=== PATIENT | male | born 1970 ===

== ENCOUNTER 2021-04-29 05:35 | Outpatient (CLI) | payer MEDICARE ==
[~2021-04-29] VITALS: Ht 175 cm; Wt 144.0 kg
[2021-04-29] MEDS ORDERED: CARB400T8 PO (10:33)
[2021-04-29] MEDS ORDERED: LAMO100T5 PO (10:33)
[2021-04-29] MEDS ORDERED: AMLO-251 PO (10:33)
== END 2021-04-29 11:24 | disposition home or self-care (01) ==
LOC: PREOP 05:35
PROVIDERS: ATTEND Surgery
DX: Z01.818 Encounter for other preprocedural examination (principal)

== ENCOUNTER 2022-05-12 18:12 | Observation (INO) | payer MEDICARE ==
[~2022-05-12] VITALS: Ht 175.3 cm; Wt 143.2 kg
[~2022-05-12 18:12] MED LIST: AMLO-251 PO; CARB400T8 PO; LAMO100T5 PO
--- NOTE | 2022-05-12 18:51 | ED Abdominal Pain ---
General Chief Complaint: Abdominal/GI Problems Stated Complaint: N/V/D Nursing Triage Note: PT TO [facility] WITH C/O N/V/D SINCE NOON WHEN HE WOKE UP TODAY. PT ALSO STATES THAT HE IS DIZZY WHEN HE TIRES TO STAND History of Present Illness Date Seen by Provider: May 12, 2022 Time Seen by Provider: 18:45 Initial Comments Patient is a 51-year-old male, who appears much older than stated age, history of diabetes, high blood pressure, seizure disorder who presents to the emergency department today with a chief complaint of feeling very dizzy and having nausea and vomiting today. He states it was a rather acute onset this afternoon when he felt a sudden onset of dizziness while watching TV. He tried to lay down and sleep a little bit which seemed to improve his symptoms but once he got up and moved around the dizziness came back. He states it feels like the room is moving around him. He has never had anything like this before. He denies headache, speech difficulties or swallowing difficulties. He denies unilateral numbness, weakness or tingling. No chest pain or shortness of breath. No abdominal pain. He states he vomited about 3 times related to the dizziness. He has developed diarrhea over the course of the last several days, he recently started metformin 2 months ago. He denies burning with urination, blood in his urine or stool. No swelling in his legs that is unusual. He is COVID vaccinated x2 without a booster. He does occasionally go to [facility]. Again he is not short of breath or coughing and does not have any URI symptoms. He has seizures occasionally and is on 2 different medications for seizure prevention. He states he is compliant with his medications. All other review of systems reviewed and negative except as stated. Timing/Duration: 4-6 Hours Severity/Quality: Moderate Associated Symptoms: Nausea/Vomiting, Other (dizziness) Allergies and Home Medications Allergies Coded Allergies: No Known Drug Allergies (Unverified , 05/12/22) Patient Home Medication List Home Medication List Reviewed: Yes Amlodipine Besylate (Amlodipine Besylate) 10 Mg Tablet, 10 MG PO DAILY, (Reported) Entered as Reported by: LEONID VILLELA on 04/29/21 1033 Carbamazepine (Carbamazepine ER) 400 Mg Tab.er.12h, 400 MG PO Q12HR, (Reported) Entered as Reported by: LEONID VILLELA on 04/29/21 1033 Lamotrigine (Lamotrigine) 100 Mg Tablet, 100 MG PO UD, (Reported) Entered as Reported by: LEONID VILLELA on 04/29/21 1033 Review of Systems Review of Systems Constitutional: see HPI EENTM: No Symptoms Reported Respiratory: No Symptoms Reported Cardiovascular: No Symptoms Reported Gastrointestinal: Diarrhea, Nausea, Vomiting Genitourinary: No Symptoms Reported Musculoskeletal: no symptoms reported Skin: no symptoms reported Psychiatric/Neurological: Other (dizziness) All Other Systems Reviewed Negative Unless Noted: Yes Past Jpgzyrb-Aluaxv-Xhbzhd Hx Patient Social History Tobacco Use?: No Use of E-Cig and/or Vaping dev: No Substance use?: No Alcohol Use?: No Pt feels they are or have been: No Immunizations Up To Date Influenza Vaccine Up-to-Date: Yes; Up-to-Date First/Initial COVID19 Vaccinat: MARCH 2021 Second COVID19 Vaccination Shahzad: APRIL 2021 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 oz. 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, no motor/sensory deficits, alert, normal mood/affect, oriented x 3, other (He has significant rotatory nystagmus in all extraocular muscle field) Skin: normal color, warm/dry Progress/Results/Core Measures Results/Orders Lab Results Laboratory Tests Test 05/12/22 18:16 Range/Units White Blood Count 21.7 H 4.3-11.0 10^3/uL Red Blood Count 5.04 4.30-5.52 10^6/uL Hemoglobin 15.6 13.3-17.7 g/dL Hematocrit 47 40-54 % Mean Corpuscular Volume 93 80-99 fL Mean Corpuscular Hemoglobin 31 25-34 pg Mean Corpuscular Hemoglobin Concent 33 32-36 g/dL Red Cell Distribution Width 12.7 10.0-14.5 % Platelet Count 361 130-400 10^3/uL Mean Platelet Volume 9.2 9.0-12.2 fL Immature Granulocyte % (Auto) 1 % Neutrophils (%) (Auto) 86 H 42-75 % Lymphocytes (%) (Auto) 7 L 12-44 % Monocytes (%) (Auto) 5 0-12 % Eosinophils (%) (Auto) 0 0-10 % Basophils (%) (Auto) 0 0-10 % Neutrophils # (Auto) 18.8 H 1.8-7.8 10^3/uL Lymphocytes # (Auto) 1.6 1.0-4.0 10^3/uL Monocytes # (Auto) 1.1 H 0.0-1.0 10^3/uL Eosinophils # (Auto) 0.0 0.0-0.3 10^3/uL Basophils # (Auto) 0.0 0.0-0.1 10^3/uL Immature Granulocyte # (Auto) 0.2 H 0.0-0.1 10^3/uL Neutrophils % (Manual) 87 % Lymphocytes % (Manual) 1 % Monocytes % (Manual) 12 % Blood Morphology Comment NORMAL Sodium Level 141 135-145 MMOL/L Potassium Level 3.5 L 3.6-5.0 MMOL/L Chloride Level 104 98-107 MMOL/L Carbon Dioxide Level 16 L 21-32 MMOL/L Anion Gap 21 H 5-14 MMOL/L Blood Urea Nitrogen 12 7-18 MG/DL Creatinine 1.13 0.60-1.30 MG/DL Estimat Glomerular Filtration Rate 79 BUN/Creatinine Ratio 11 Glucose Level 161 H 70-105 MG/DL Calcium Level 9.4 8.5-10.1 MG/DL Corrected Calcium 9.2 8.5-10.1 MG/DL Total Bilirubin 0.2 0.1-1.0 MG/DL Aspartate Amino Transf (AST/SGOT) 25 5-34 U/L Alanine Aminotransferase (ALT/SGPT) 38 0-55 U/L Alkaline Phosphatase 149 H 40-136 U/L C-Reactive Protein High Sensitivity 2.95 H 0.00-0.50 MG/DL Total Protein 7.7 6.4-8.2 GM/DL Albumin 4.3 3.2-4.5 GM/DL My Orders Orders - LATRELL GONZALEZ MD Ed Iv/Invasive Line Start (05/12/22 19:03) Cbc With Automated Diff (05/12/22 19:03) Comprehensive Metabolic Panel (05/12/22 19:03) Ekg Tracing (05/12/22 19:03) Meclizine Tablet (Antivert Tablet) (05/12/22 19:15) Ondansetron Injection (Zofran Injectio (05/12/22 19:15) Lactated Ringers (Lr 1000 Ml Iv Solution (05/12/22 19:15) Manual Differential (05/12/22 18:16) Ct Head Wo (05/12/22 20:17) Diazepam Injection (Valium Injection) (05/12/22 21:34) Lactated Ringers (Lr 1000 Ml Iv Solution (05/12/22 21:45) Hs C Reactive Protein (05/12/22 21:44) Blood Culture (05/12/22 22:53) Procalcitonin (Pct) (05/12/22 22:53) Ua Culture If Indicated (05/12/22 22:53) Chest 1 View, Ap/Pa Only (05/12/22 22:53) Covid 19 Inhouse Test (05/12/22 22:53) Lactic Acid Analyzer (05/12/22 22:53) Isolation Central Supply Req (05/12/22 22:53) Blood Culture (05/12/22 22:53) Medications Given in ED Current Medications Medications Dose Ordered Sig/Brandon Route Start Time Stop Time Status Last Admin Dose Admin Meclizine HCl 25 mg ONCE ONCE PO 05/12/22 19:15 05/12/22 19:16 DC 05/12/22 19:19 25 MG Ondansetron HCl 4 mg ONCE ONCE IVP 05/12/22 19:15 05/12/22 19:16 DC 05/12/22 19:19 4 MG Vital Signs/I&O 05/12/22 18:23 Temp 35.8 Pulse 94 Resp 18 B/P (MAP) 149/87 (107) Blood Pressure Mean: 107 Initial ECG Impression Date: May 12, 2022 Initial ECG Impression Time: 19:09 Initial ECG Rate: 95 Initial ECG Rhythm: S.Tach Initial ECG Intervals IN interval 175 QRS 107 QTC [address] segment depression or elevation is noted, no ectopy. Q waves in lead III. Normal intervals Departure Communication (Admissions) Time/Spoke to Admitting Phy: 22:[address] Wilkins - will admit observation Impression Primary Impression: Vertigo, constant Disposition: 09 ADMITTED INPATIENT Condition: Stable Admissions Decision to Admit Reason: Admit from ER (General) Decision to Admit/Date: May 12, 2022 Time/Decision to Admit Time: 22:27 LATRELL GONZALEZ MD May 12, 2022 18:51
[2022-05-12 19:12] LABS: BASOPHILS % (AUTO) 0 % (0-10); EOSINOPHILS % (AUTO) 0 % (0-10); HEMATOCRIT 47 % (40-54); HEMOGLOBIN 15.6 g/dL (13.3-17.7); LYMPHOCYTES # (AUTO) 1.6 10^3/uL (1.0-4.0); LYMPHOCYTES % (AUTO) 7 % (12-44); MEAN CORPUSCULAR HEMOGLOBIN 31 pg (25-34); MEAN CORPUSCULAR HGB CONC 33 g/dL (32-36); MEAN CORPUSCULAR VOLUME 93 fL (80-99); MEAN PLATELET VOLUME 9.2 fL (9.0-12.2); MONOCYTES # (AUTO) 1.1 10^3/uL (0.0-1.0); MONOCYTES % (AUTO) 5 % (0-12); NEUTROPHILS # (AUTO) 18.8 10^3/uL (1.8-7.8); NEUTROPHILS % (AUTO) 86 % (42-75); PLATELET COUNT 361 10^3/uL (130-400); WHITE BLOOD COUNT 21.7 10^3/uL (4.3-11.0)
[2022-05-12] MEDS ORDERED: LACTATED RINGERS 1,000 ML IV SCH ×2 (19:15→21:45)
[2022-05-12] MEDS ORDERED: MECLIZINE 25 MG (ANTIVERT) TAB PO ONE (19:15)
[2022-05-12] MEDS ORDERED: ONDANSETRON 4 MG/2 ML (SDV) Z0FRAN IVP ONE (19:15)
[2022-05-12 19:24] LABS: ALBUMIN 4.3 GM/DL (3.2-4.5); BILIRUBIN,TOTAL 0.2 MG/DL (0.1-1.0); CALCIUM 9.4 MG/DL (8.5-10.1); CREATININE SERUM 1.13 MG/DL (0.60-1.30); POTASSIUM 3.5 MMOL/L (3.6-5.0); TOTAL PROTEIN 7.7 GM/DL (6.4-8.2)
[2022-05-12 19:27] LABS: LYMPHOCYTES % (MANUAL) 1 %; MONOCYTES % (MANUAL) 12 %; NEUTROPHILS % (MANUAL) 87 %; RBC MORPH NORMAL
--- NOTE | 2022-05-12 21:25 | Diagnostic Imaging Report ---
INDICATION: Dizziness and ataxia. TECHNIQUE: Multiple contiguous axial images were obtained through the brain without the use of intravenous contrast. Auto Exposure Controls were utilized during the CT exam to meet ALARA standards for radiation dose reduction. COMPARISON: There is no prior study for comparison. There were no extra-axial fluid collections. No intracranial hemorrhage. No intracranial mass or mass effect. No midline shift. The ventricles are normal in size and position. There were no overt acute parenchymal abnormalities in the brain. Calvarial windows showed no acute finding. Orbital contents appear unremarkable. IMPRESSION: No acute intracranial abnormality. Dictated by: Dictated on workstation # [id number]
[2022-05-12] MEDS ORDERED: DIAZEPAM INJ 10 MG/2 ML (VALIUM) SYR IVP STA (21:34)
[2022-05-12] MEDS ORDERED: diphenhydrAMINE 25 MG TAB (BENADRYL) PO PRN (23:45)
[2022-05-12] MEDS ORDERED: ONDANSETRON 4 MG/2 ML (SDV) Z0FRAN IV PRN (23:45)
[2022-05-13] VITALS (7 sets, daily range): BP systolic 129–148; BP diastolic 75–85
[2022-05-13] MEDS: MECLIZINE 25 MG (ANTIVERT) TAB PO SCH ×5 (00:40→23:05)
[2022-05-13] MEDS: carBAMazepine 200 MG (TEGretol) TAB PO SCH ×3 (00:40→20:07)
[2022-05-13] MEDS: NS IV 1000 ML 1,000 ML IV SCH ×3 (00:41→15:41)
[2022-05-13 00:59] LABS: BILIRUBIN,URINE NEGATIVE (NEGATIVE); CLARITY,URINE CLEAR; COLOR,URINE YELLOW; GLUCOSE, URINE (UA) NEGATIVE (NEGATIVE); KETONES,URINE TRACE (NEGATIVE); LEUKOCYTE ESTERASE ,URINE NEGATIVE (NEGATIVE); NITRITE,URINE NEGATIVE (NEGATIVE); PH,URINE 5.5 (5-9); PROTEIN,URINE NEGATIVE (NEGATIVE)
[2022-05-13 01:09] LABS: RBC,URINE 0-2 /HPF
[2022-05-13 01:10] LABS: BACTERIA,URINE NEGATIVE /HPF
[2022-05-13] MEDS: cefTRIAXone 2,000 MG in NS (IVPB) 50 ML IV SCH ×2 (01:33→11:35)
[2022-05-13] MEDS ORDERED: VANCOMYCIN INJECTION 1,000 MG in NS (IVPB) 250 ML IV SCH (02:00)
[2022-05-13] MEDS: AMPICILLIN FOR IV USE 2,000 MG in WATER (STERILE) FOR INJECTION 14.8 ML IV SCH ×6 (05:08→23:06)
[2022-05-13 05:51] LABS: BASOPHILS % (AUTO) 0 % (0-10); EOSINOPHILS % (AUTO) 0 % (0-10); HEMATOCRIT 42 % (40-54); LYMPHOCYTES # (AUTO) 1.5 10^3/uL (1.0-4.0); LYMPHOCYTES % (AUTO) 11 % (12-44); MEAN CORPUSCULAR HEMOGLOBIN 31 pg (25-34); MEAN CORPUSCULAR HGB CONC 33 g/dL (32-36); MEAN CORPUSCULAR VOLUME 94 fL (80-99); MEAN PLATELET VOLUME 8.9 fL (9.0-12.2); MONOCYTES # (AUTO) 0.9 10^3/uL (0.0-1.0); MONOCYTES % (AUTO) 6 % (0-12); NEUTROPHILS % (AUTO) 82 % (42-75); PLATELET COUNT 297 10^3/uL (130-400); WHITE BLOOD COUNT 13.5 10^3/uL (4.3-11.0)
--- NOTE | 2022-05-13 06:03 | History & Physical-Hospitalist ---
History of Present Illness HPI/Chief Complaint CC: Severe dizziness HPI: This is a 51 yr old WM with a history of seizure disorder and hypertension. He presented to the ER with severe dizziness for the past couple days and couldn't walk. He was admitted after his white count was found to be 21,000 without source. But Covid swab was negative. There was a concern due to elevated lactic acid. Initiated IV fluid with meningitis. Anesthesia was able to perform the lumbar puncture satisfactory, after the ER doctor was unable to do the test due to BMI of 46. They didn't have a long enough needle. That was sent off. He was placed on three antibiotic regimen, even though LP hadn't been done yet. Will follow up on those results. Currently he is asymptomatic. Source: patient Exam Limitations: no limitations Date Seen 05/13/22 Time Seen by a Provider: 09:30 Attending Physician PCP Admitting Physician: Paula Wilkins DO Attending Physician: Paula Wilkins DO Referring Physician Date of Admission May 12, 2022 at 22:58 Home Medications & Allergies Home Medications Reviewed patient Home Medication Reconciliation performed by pharmacy medication reconciliations geodetic technician and/or nursing. Patients Allergies have been reviewed. Allergies Allergies Coded Allergies No Known Drug Allergies (Unverified05/12/22) Past Kwfudnf-Hrkjer-Txkvxn Hx Patient Social History Marrital Status: single Employed/Student: unemployed Tobacco Use?: No Smoking Status: Never a Smoker Smokeless Tobacco Frequency: Never a User Use of E-Cig and/or Vaping dev: No Substance use?: No Alcohol Use?: No Pt feels they are or have been: No Immunizations Up To Date First/Initial COVID19 Vaccinat: MARCH 2021 Second COVID19 Vaccination Shahzad: APRIL 2021 Tetanus Booster (TDap): Unknown Seasonal Allergies Seasonal Allergies: No Current Status Advance Directives: No Communicates: Points Primary Language: Burmese Preferred Spoken Language: Burmese Is interpretation needed?: No Sensory deficits: Vision impairment Past Medical History Hypertension Seizure Disorder Blood Disorders: No Review of Systems Constitutional: see HPI, dizziness, weakness EENTM: no symptoms reported Respiratory: no symptoms reported Cardiovascular: no symptoms reported Gastrointestinal: no symptoms reported Genitourinary: no symptoms reported Musculoskeletal: no symptoms reported Skin: no symptoms reported Psychiatric/Neurological: No Symptoms Reported All Other Systems Reviewed Negative Unless Noted: Yes Physical Exam Physical Exam Vital Signs Vital Signs - First Documented 05/12/22 05/12/22 05/13/22 18:23 23:25 00:17 Temp 35.8 Pulse 94 Resp 18 B/P (MAP) 149/87 (107) Pulse Ox 97 O2 Delivery Room Air Capillary Refill : Height, Weight, BMI Height: '" Weight: lbs. oz. kg; 46.59 BMI Method: General Appearance: No Apparent Distress, Chronically ill, Obese Eyes: Right Eye Normal Inspection, Right Eye PERRL HEENT: PERRL/EOMI, Normal ENT Inspection, Pharynx Normal, Moist Mucous Membranes Neck: Full Range of Motion, Normal Inspection, Non Tender Respiratory: Chest Non Tender, Lungs Clear, Normal Breath Sounds, No Accessory Muscle Use, No Respiratory Distress Cardiovascular: Regular Rate, Rhythm, No Edema, No Gallop, No JVD, No Murmur, Normal Peripheral Pulses Gastrointestinal: Normal Bowel Sounds, No Organomegaly, No Pulsatile Mass, Non Tender, Soft Back: Normal Inspection, No CVA Tenderness, No Vertebral Tenderness Extremity: Normal Capillary Refill, Normal Inspection, Normal Range of Motion, Non Tender, No Calf Tenderness, No Pedal Edema Neurologic/Psychiatric: Alert, Oriented x3, No Motor/Sensory Deficits, Normal Mood/Affect Skin: Normal Color, Warm/Dry Lymphatic: No Adenopathy Results Results/Procedures Labs Laboratory Tests 05/12/22 18:16 05/13/22 05:39 Patient resulted labs reviewed. Assessment/Plan Admission Diagnosis Assessment: Severe debilitating dizziness COVID + without hypoxia Lactic acidosis Suspicion for meningitis s/p LP after delay due to habitus requiring anesthesia expertise HTN Seizure d/o Plan: Triple abx for meningitis empirically s/p LP delay due to habitus Seizure meds Admission Status: Inpatient Order (span 2 midnights) Reason for Inpatient Admission: meningitis with COVID Diagnosis/Problems Diagnosis/Problems (1) Meningitis (2) COVID (3) Vertigo, constant Status: Acute (4) Leukocytosis PAULA WILKINS DO May 13, 2022 06:03
[2022-05-13 06:13] LABS: POTASSIUM 3.7 MMOL/L (3.6-5.0)
[2022-05-13 06:14] LABS: CALCIUM 8.7 MG/DL (8.5-10.1)
[2022-05-13 06:15] LABS: TOTAL PROTEIN 6.9 GM/DL (6.4-8.2)
[2022-05-13 06:17] LABS: BILIRUBIN,TOTAL 0.3 MG/DL (0.1-1.0)
[2022-05-13 06:19] LABS: CREATININE SERUM 0.86 MG/DL (0.60-1.30)
--- NOTE | 2022-05-13 06:52 | Diagnostic Imaging Report ---
INDICATION: Vertigo Portable AP view of the chest is obtained. Study is limited by patient body habitus and suboptimal inspiration. There is generalized cardiomegaly with mild pulmonary venous congestion. No pneumothorax or consolidation is identified. IMPRESSION: Cardiomegaly and mild pulmonary venous congestion with hypoventilation. Dictated by: Dictated on workstation # [id number]
[2022-05-13] MEDS: amLODIPine 10 MG (NORVASC) TAB PO SCH (08:20)
[2022-05-13] MEDS: ACETAMINOPHEN 500 MG TAB (TYLENOL) PO PRN (08:20)
[2022-05-13] MEDS: VANCOMYCIN INJECTION 1,000 MG in NS (IVPB) 250 ML IV SCH ×2 (08:59→17:41)
[2022-05-13 12:01] LABS: RED BLOOD CELL,CSF 0.003 10^6/uL (0-0); WHITE BLOOD CELL,CSF 0.019 10^3/uL (0-0.005)
[2022-05-13 12:14] LABS: CSF GLUCOSE 74 MG/DL (50-80)
[2022-05-13 12:20] LABS: CSF TOTAL PROTEIN 39 MG/DL (15-40)
[2022-05-13 13:01] LABS: APPEARANCE,CSF SLT BLDY; COLOR,CSF COLORLESS
[2022-05-13 13:03] LABS: CSF TUBE NUMBER 1
--- NOTE | 2022-05-13 13:06 | Anesthesia-Procedure Note ---
Procedures/Interventions Procedure Start/Stop/Diagnosis Date of Procedure: May 13, 2022 Start Time: 11:00 Stop Time: 11:20 Lumbar Puncture Discussed Risk,Benefits: Yes Patient Consents: Yes Position: Sitting Sterile Technique: Yes Fluid Color: clear Spinal Needle Used: 22g Ewing 3 1/2 inch Procedure Notes Spoke with patient about procedure. Risks and benefits discussed. Consent si gned. Back prepped and draped in sterile fashion. L3-4 interspace ID'd. 20g spinal needle used. +CSF after 2 redirects. After obtaining 2nd vial of CSF pt readjusted. lost CSF flow. needle attempted to be advanced with parasthesia now. Multiple attempts or redirect without success. Dr cloud. IRIS SAENZ CRNA May 13, 2022 13:06
[2022-05-13] MEDS ORDERED: METF-478 PO (14:14)
[2022-05-13] MEDS ORDERED: CARB400T8 PO (14:14)
[2022-05-13] MEDS ORDERED: LAMO100T5 PO (14:14)
[2022-05-14] MEDS: VANCOMYCIN INJECTION 1,000 MG in NS (IVPB) 250 ML IV SCH ×2 (01:15→10:30)
[2022-05-14] MEDS: cefTRIAXone 2,000 MG in NS (IVPB) 50 ML IV SCH (01:15)
[2022-05-14] MEDS: AMPICILLIN FOR IV USE 2,000 MG in WATER (STERILE) FOR INJECTION 14.8 ML IV SCH ×3 (04:16→11:24)
[2022-05-14] MEDS: MECLIZINE 25 MG (ANTIVERT) TAB PO SCH ×3 (04:16→17:50)
[2022-05-14 04:17] VITALS: BP 125/80
--- NOTE | 2022-05-14 06:01 | Progress Note - Hospitalist ---
Subjective HPI/CC On Admission Date Seen by Provider: May 14, 2022 Time Seen by Provider: 11:30 CC: Severe dizziness HPI: This is a 51 yr old WM with a history of seizure disorder and hypertension. He presented to the ER with severe dizziness for the past couple days and couldn't walk. He was admitted after his white count was found to be 21,000 without source. But Covid swab was negative. There was a concern due to elevated lactic acid. Initiated IV fluid with meningitis. Anesthesia was able to perform the lumbar puncture satisfactory, after the ER doctor was unable to do the test due to BMI of 46. They didn't have a long enough needle. That was sent off. He was placed on three antibiotic regimen, even though LP hadn't been done yet. Will follow up on those results. Currently he is asymptomatic. Subjective/Events-last exam Pt is doing well PT and OT were consulted Still a fall risk Discontinue antibiotics Covid meningitis diagnosed Severe vertigo continues Review of Systems General: Fatigue, Malaise Focused Exam Lactate Level 05/12/22 00:09: Lactic Acid Level 4.82*H 05/13/22 05:39: Lactic Acid Level 1.30 Objective Exam Vital Signs Vital Signs Date Time Temp Pulse Resp B/P (MAP) Pulse Ox O2 Delivery O2 Flow Rate FiO2 05/14/22 15:51 36.7 94 15 154/95 (114) 94 Room Air Capillary Refill : General Appearance: No Apparent Distress, WD/WN, Chronically ill Respiratory: Lungs Clear, Normal Breath Sounds Cardiovascular: Regular Rate, Rhythm Neurologic/Psychiatric: Alert, Oriented x3, No Motor/Sensory Deficits, Normal Mood/Affect Results/Procedures Lab Laboratory Tests 05/14/22 09:42 Patient resulted labs reviewed. Assessment/Plan Assessment and Plan Assess & Plan/Chief Complaint Assessment: Severe debilitating dizziness COVID + without hypoxia Lactic acidosis Suspicion for meningitis s/p LP after delay due to habitus requiring anesthesia expertise and confirmed COVID meningitis HTN Seizure d/o Plan: DC triple abx for meningitis empirically s/p LP delay due to habitus Seizure meds Diagnosis/Problems Diagnosis/Problems (1) Meningitis (2) COVID (3) Vertigo, constant Status: Acute (4) Leukocytosis RIGO MURILLO DO May 14, 2022 06:01
[2022-05-14] MEDS: ENOXAPARIN 40 MG/0.4 ML (LOVENOX) SYR SC SCH ×2 (06:34→17:50)
[2022-05-14 08:18] VITALS: BP 159/90
[2022-05-14] MEDS: ACETAMINOPHEN 500 MG TAB (TYLENOL) PO PRN (08:43)
[2022-05-14] MEDS: carBAMazepine 200 MG (TEGretol) TAB PO SCH ×2 (08:43→20:06)
[2022-05-14] MEDS: amLODIPine 10 MG (NORVASC) TAB PO SCH (08:43)
[2022-05-14] MEDS ORDERED: TROUGH ORDER-PHARMACY XX ONE (09:00)
[2022-05-14 09:51] LABS: BASOPHILS % (AUTO) 0 % (0-10); EOSINOPHILS # (AUTO) 0.2 10^3/uL (0.0-0.3); EOSINOPHILS % (AUTO) 3 % (0-10); HEMATOCRIT 42 % (40-54); LYMPHOCYTES # (AUTO) 1.6 10^3/uL (1.0-4.0); LYMPHOCYTES % (AUTO) 19 % (12-44); MEAN CORPUSCULAR HEMOGLOBIN 32 pg (25-34); MEAN CORPUSCULAR HGB CONC 34 g/dL (32-36); MEAN CORPUSCULAR VOLUME 93 fL (80-99); MEAN PLATELET VOLUME 8.9 fL (9.0-12.2); MONOCYTES # (AUTO) 0.4 10^3/uL (0.0-1.0); MONOCYTES % (AUTO) 5 % (0-12); NEUTROPHILS # (AUTO) 5.8 10^3/uL (1.8-7.8); NEUTROPHILS % (AUTO) 72 % (42-75); PLATELET COUNT 244 10^3/uL (130-400); WHITE BLOOD COUNT 8.1 10^3/uL (4.3-11.0)
[2022-05-14 10:10] LABS: ALBUMIN 3.8 GM/DL (3.2-4.5); BILIRUBIN,TOTAL 0.3 MG/DL (0.1-1.0); CALCIUM 8.6 MG/DL (8.5-10.1); CREATININE SERUM 0.87 MG/DL (0.60-1.30); POTASSIUM 3.5 MMOL/L (3.6-5.0); TOTAL PROTEIN 6.7 GM/DL (6.4-8.2)
[2022-05-14 11:39] VITALS: BP 154/74
--- NOTE | 2022-05-14 11:41 | Physical Therapy Evaluation ---
PT Evaluation-General Medical Diagnosis Admission Date May 12, 2022 at 22:58 Medical Diagnosis: Covid/vertigo/leukocytosis Onset Date: May 12, 2022 Therapy Diagnosis Therapy Diagnosis: debility/weakness Precautions Precautions/Isolations: Contact Isolation, Droplet Isolation, Fall Prevention Referral Physician: Claudette Reason for Referral: Evaluation/Treatment Medical History Pertinent Medical History: DM, HTN Additional Medical History obesity/seizure Current History EMS secondary to dizziness/N&V Reviewed History: Yes Social History Home: Apartment Current Living Status: Alone Entry Into Home: Stairs With Railing PT Steps Into Home: 4 Prior Prior Level of Function SCALE: Activities may be completed with or without assistive devices. 4-Gtvqojzsxu-hsmglbg completes the activity by him/herself with no assistance fr om a helper. 5-Set-up or Clean-up Assistance-helper sets up or cleans up; patient completes activity. Harrold assists only prior to or following the activity. 4-Supervision or Touching Assistance-helper provides verbal cues and/or touching/steadying and/or contact guard assistance as patient completes activity. Assistance may be provided throughout the activity or intermittently. 3-Partial/Moderate Assistance-helper does LESS THAN HALF the effort. Harrold lifts, holds or supports trunk or limbs, but provides less than half the effort. 2-Substantial/Maximal Assistance-helper does MORE THAN HALF the effort. Harrold lifts or holds trunk or limbs and provides more than half the effort. 6-Coudyrcnu-auytom does ALL the effort. Patient does none of the effort to complete the activity. Or, the assistance of 2 or more helpers is required for the patient to complete the activity. If activity was not attempted, code reason: 7-Patient Refused. 9-Not Applicable-not attempted and the patient did not perform the activity before the current illness, exacerbation or injury. 10-Not Attempted due to Environmental Limitations-(lack of equipment, weather restraints, etc.). 88-Not Attempted due to Medical Conditions or Safety Concerns. Bed Mobility: 6 Transfers (B,C,W/C): 6 Gait: 6 Stairs: 6 Indoor Mobility (Ambulation): Independent Stairs: Independent Prior Devices Use: None PT Evaluation-Current Subjective Patient agrees to PT. Objective Patient Orientation: Normal For Age Attachments: IV ROM/Strength ROM Lower Extremities bilateral LE WFL Strength Lower Extremities 4/5 grossly bilateral LE Integumentary/Posture Bowel Incontinence: No Bladder Incontinence: No Posture WFL Neuromuscular (Tone, Coordination, Reflexes) diminished coordination with ambulation Sensory Vision: Wears Glasses Hearing: Functional Transfers Lying to Sitting/Side of Bed(Q: 6 Sit to Stand (QC): 4 Chair/Ikz-uq-Omays Xfer(QC): 4 Gait Mode of Locomotion: Walk Anticipated Mode of Locomotion: Walk Walk 10 feet (QC): 4 Walk 50 ft with 2 Turns(QC): 4 Walk 150 ft (QC): 4 Distance: 150' in room Gait Assistive Device: FWW Comments/Gait Description unsteady without FWW/much improved with FWW use Balance Sitting Static: Normal Sitting Dynamic: Normal Standing Static: Fair Standing Dynamic: Fair Assessment/Needs 51 y.o. male, will be seen short term by skilled PT to address functional mobility to ensure safe return to home at maximum LOF. Rehab Potential: Fair PT Instructor Creeler Goals Residential Goals PT Instructor Creeler Goals Time Frame: May 23, 2022 Roll Left & Right (QC): 6 Sit to Lying (QC): 6 Lying-Sitting on Side/Bed(QC): 6 Sit to Stand (QC): 6 Chair/Xin-tq-Kcyqq Xfer(QC): 6 Toilet Transfer (QC): 6 Walk 10 feet (QC): 6 Walk 50ft with 2 Turns (QC): 6 Walk 150 ft (QC): 6 PT Plan Problem List Problem List: Activity Tolerance, Functional Strength, Safety, Balance, Gait, Transfer Treatment/Plan Treatment Plan: Continue Plan of Care Treatment Plan: Education, Functional Activity Arpan, Functional Strength, Gait , Safety, Therapeutic Exercise, Transfers Treatment Duration: May 23, 2022 Frequency: 6 times per week Estimated Hrs Per Day: .25 hour per day Patient and/or Family Agrees t: Yes Time/GCodes Time In: 1112 Time Out: 1124 Total Billed Treatment Time: 12 Total Billed Treatment 1 visit EVMod 12 min KEL STEELE PT May 14, 2022 11:41
--- NOTE | 2022-05-14 12:59 | Occupational Therapy Eval ---
OT Evaluation-General/PLF Medical Diagnosis Admission Date May 12, 2022 at 22:58 Medical Diagnosis: Covid/vertigo/leukocytosis Onset Date: May 12, 2022 Therapy Diagnosis Therapy Diagnosis: weakness Precautions Precautions/Isolations: Contact Isolation, Droplet Isolation, Fall Prevention Referral Physician: Claudette Kraft Reason: Evaluation/Treatment Medical History Pertinent Medical History: DM, HTN Additional Medical History seizure disorder, HTN Current History ED with severe dizziness past couple of days and couldn't walk. Social History Home: Apartment Current Living Status: Alone Entry Into Home: Stairs With Railing Steps Into Home: 4 ADL-Prior Level of Function SCALE: Activities may be completed with or without assistive devices. 8-Jngralejuu-gcvgoan completes the activity by him/herself with no assistance from a helper. 5-Set-up or Clean-up Assistance-helper sets up or cleans up; patient completes activity. [place] assists only prior to or following the activity. 4-Supervision or Touching Assistance-helper provides verbal cues and/or touching/steadying and/or contact guard assistance as patient completes activity. Assistance may be provided throughout the activity or intermittently. 3-Partial/Moderate Assistance-helper does LESS THAN HALF the effort. [place] lifts, holds or supports trunk or limbs, but provides less than half the effort. 2-Substantial/Maximal Assistance-helper does MORE THAN HALF the effort. [place] lifts or holds trunk or limbs and provides more than half the effort. 6-Cdvnwfjil-tujorc does ALL the effort. Patient does none of the effort to complete the activity. Or, the assistance of 2 or more helpers is required for the patient to complete the activity. If activity was not attempted, code reason: 7-Patient Refused. 9-Not Applicable-not attempted and the patient did not perform the activity before the current illness, exacerbation or injury. 10-Not Attempted due to Environmental Limitations-(lack of equipment, weather restraints, etc.). 88-Not Attempted due to Medical Conditions or Safety Concerns. ADL PLOF Comments Pt reports IND with ADLs and functional mobility at PLOF, no AD. Self Care: Independent Functional Cognition: Independent DME/Equipment: Tub/Shower OT Current Status Subjective Pt in recliner, agreeable to OT tx, states he is feeling pretty good. Current Upper Extremity ROM WFL ADL-Treatment Eating (QC): 6 (per pt report) On/Off Footwear (QC): 6 Toileting Hygiene (QC): 4 (SBA standing at toilet to urinate) Other Treatments Pt seated in recliner, agreeable to OT Tx. Pt used FWW to perform mobility into bathroom, standing at toilet to urinate, CGA-SBA mobility with walker. Pt often left walker behind requiring cues for safety to use walker. Pt returned to chair, no AD from bathroom, initially CGA, but once at chair during turn, LOB noted requiring assistance to correct balance and sit in recliner abruptly. OT educated pt on importance of using FWW for stability and energy conservation, pt verbalized understanding. Post tx, pt in recliner, call light in reach and all needs met. Education OT Patient Education: Correct positioning, Energy conservation, Modified ADL techniques, Progress toward Goal/Update tx plan, Purpose of tx/functional activities, Rehab process Teaching Recipient: Patient Teaching Methods: Discussion Response to Teaching: Verbalize Understanding OT Shelter Goals Shelter Goals Time Frame: May 15, 2022 Eating (QC): 6 Oral Hygiene (QC): 6 Toileting Hygiene (QC): 6 Shower/Bathe Self (QC): 6 Upper Body Dressing (QC): 6 Lower Body Dressing (QC): 6 On/Off Footwear (QC): 6 1=Demonstrate adherence to instructed precautions during ADL tasks. 2=Patient will verbalize/demonstrate understanding of assistive devices/modifications for ADL. 3=Patient will improve strength/tolerance for activity to enable patient to perform ADL's. OT Education/Plan Problem List/Assessment Assessment: Decreased Activ Tolerance, Decreased UE Strength, Impaired Funct Balance, Impaired I ADL's, Impaired Self-Care Skills Discharge Recommendations Plan/Recommendations: Continue POC Treatment Plan/Plan of Care Patient would benefit from OT for education, treatment and training to promote independence in ADL's, mobility, safety and/or upper extremity function for ADL's. Plan of Care: ADL Retraining, Functional Mobility, UE Funct Exercise/Act Treatment Duration: May 15, 2022 Frequency: 3 times per week (3-5 times per week.) Estimated Hrs Per Day: .25 hour per day Rehab Potential: Fair Time/GCodes Start Time: 11:40 Stop Time: 11:49 Total Time Billed (hr/min): 9 Billed Treatment Time VICTOR MANUEL DOMINGUEZ OT May 14, 2022 12:59
[2022-05-14 15:51] VITALS: BP 154/95
[2022-05-15 00:04] VITALS: BP 159/79
[2022-05-15] MEDS: MECLIZINE 25 MG (ANTIVERT) TAB PO SCH ×4 (00:12→16:42)
[2022-05-15] MEDS: ENOXAPARIN 40 MG/0.4 ML (LOVENOX) SYR SC SCH ×2 (05:44→16:42)
[2022-05-15 06:01] LABS: BASOPHILS # (AUTO) 0.1 10^3/uL (0.0-0.1); BASOPHILS % (AUTO) 1 % (0-10); EOSINOPHILS # (AUTO) 0.3 10^3/uL (0.0-0.3); EOSINOPHILS % (AUTO) 4 % (0-10); HEMATOCRIT 43 % (40-54); HEMOGLOBIN 14.5 g/dL (13.3-17.7); LYMPHOCYTES # (AUTO) 1.6 10^3/uL (1.0-4.0); LYMPHOCYTES % (AUTO) 20 % (12-44); MEAN CORPUSCULAR HEMOGLOBIN 31 pg (25-34); MEAN CORPUSCULAR HGB CONC 33 g/dL (32-36); MEAN CORPUSCULAR VOLUME 93 fL (80-99); MEAN PLATELET VOLUME 9.3 fL (9.0-12.2); MONOCYTES # (AUTO) 0.5 10^3/uL (0.0-1.0); MONOCYTES % (AUTO) 7 % (0-12); NEUTROPHILS # (AUTO) 5.3 10^3/uL (1.8-7.8); NEUTROPHILS % (AUTO) 68 % (42-75); PLATELET COUNT 274 10^3/uL (130-400); WHITE BLOOD COUNT 7.8 10^3/uL (4.3-11.0)
--- NOTE | 2022-05-15 06:06 | Progress Note - Hospitalist ---
Subjective HPI/CC On Admission Date Seen by Provider: May 15, 2022 Time Seen by Provider: 11:00 CC: Severe dizziness HPI: This is a 51 yr old WM with a history of seizure disorder and hypertension. He presented to the ER with severe dizziness for the past couple days and couldn't walk. He was admitted after his white count was found to be 21,000 without source. But Covid swab was negative. There was a concern due to elevated lactic acid. Initiated IV fluid with meningitis. Anesthesia was able to perform the lumbar puncture satisfactory, after the ER doctor was unable to do the test due to BMI of 46. They didn't have a long enough needle. That was sent off. He was placed on three antibiotic regimen, even though LP hadn't been done yet. Will follow up on those results. Currently he is asymptomatic. Focused Exam Lactate Level 05/13/22 05:39: Lactic Acid Level 1.30 Objective Exam Vital Signs Vital Signs Date Time Temp Pulse Resp B/P (MAP) Pulse Ox O2 Delivery O2 Flow Rate FiO2 05/15/22 08:56 36.9 94 20 158/99 (118) 95 Room Air Capillary Refill : Results/Procedures Lab Laboratory Tests 05/15/22 05:44 Patient resulted labs reviewed. Assessment/Plan Assessment and Plan Assess & Plan/Chief Complaint Assessment: Severe debilitating dizziness COVID + without hypoxia Lactic acidosis Suspicion for meningitis s/p LP after delay due to habitus requiring anesthesia expertise and confirmed COVID meningitis HTN Seizure d/o Plan: DC triple abx for meningitis empirically s/p LP delay due to habitus Seizure meds Diagnosis/Problems Diagnosis/Problems (1) Meningitis (2) COVID (3) Vertigo, constant Status: Acute (4) Leukocytosis RIGO MURILLO DO May 15, 2022 06:06
[2022-05-15 07:11] LABS: ALBUMIN 3.8 GM/DL (3.2-4.5); POTASSIUM 3.6 MMOL/L (3.6-5.0)
[2022-05-15 07:13] LABS: CALCIUM 8.7 MG/DL (8.5-10.1)
[2022-05-15 07:14] LABS: TOTAL PROTEIN 6.7 GM/DL (6.4-8.2)
[2022-05-15 07:16] LABS: BILIRUBIN,TOTAL 0.4 MG/DL (0.1-1.0)
[2022-05-15 07:18] LABS: CREATININE SERUM 0.88 MG/DL (0.60-1.30)
[2022-05-15] MEDS: amLODIPine 10 MG (NORVASC) TAB PO SCH (08:23)
[2022-05-15] MEDS: carBAMazepine 200 MG (TEGretol) TAB PO SCH ×2 (08:23→20:14)
[2022-05-15] MEDS: ACETAMINOPHEN 500 MG TAB (TYLENOL) PO PRN (08:23)
[2022-05-15 08:56] VITALS: BP 158/99
[2022-05-15] MEDS ORDERED: TROUGH ORDER-PHARMACY XX ONE (09:00)
--- NOTE | 2022-05-15 10:59 | Physical Therapy Daily Note ---
PT Daily Note-Current Subjective Patient denies dizziness on this date. Agrees to PT. Mental Status Patient Orientation: Normal For Age Transfers SCALE: Activities may be completed with or without assistive devices. 4-Ugnsjjodyj-suooqgr completes the activity by him/herself with no assistance from a helper. 5-Set-up or Clean-up Assistance-helper sets up or cleans up; patient completes activity. [place] assists only prior to or following the activity. 4-Supervision or Touching Assistance-helper provides verbal cues and/or touchi ng/steadying and/or contact guard assistance as patient completes activity. Assistance may be provided throughout the activity or intermittently. 3-Partial/Moderate Assistance-helper does LESS THAN HALF the effort. [place] lifts, holds or supports trunk or limbs, but provides less than half the effort. 2-Substantial/Maximal Assistance-helper does MORE THAN HALF the effort. [place] lifts or holds trunk or limbs and provides more than half the effort. 4-Zsckfxxzr-zlqrvb does ALL the effort. Patient does none of the effort to complete the activity. Or, the assistance of 2 or more helpers is required for the patient to complete the activity. If activity was not attempted, code reason: 7-Patient Refused. 9-Not Applicable-not attempted and the patient did not perform the activity before the current illness, exacerbation or injury. 10-Not Attempted due to Environmental Limitations-(lack of equipment, weather restraints, etc.). 88-Not Attempted due to Medical Conditions or Safety Concerns. Lying to Sitting/Side of Bed(Q: 6 Sit to Stand (QC): 4 Chair/Phn-dk-Ljhmz Xfer(QC): 4 Gait Training Distance: 150' in room Walk 10 feet (QC): 4 Walk 50 ft with 2 Turns(QC): 4 Walk 150 ft (QC): 4 Gait Assistive Device: FWW SBA for safety/safe and functional gait sequence with FWW use Assessment Patient up in recliner with needs met. PT consulted with physician on patient's need for FWW for home use. PT Hospice Registered Nurse Goals [facility] Goals PT Hospice Registered Nurse Goals Time Frame: May 23, 2022 Roll Left & Right (QC): 6 Sit to Lying (QC): 6 Lying-Sitting on Side/Bed(QC): 6 Sit to Stand (QC): 6 Chair/Kzf-kf-Jsaqj Xfer(QC): 6 Toilet Transfer (QC): 6 Walk 10 feet (QC): 6 Walk 50ft with 2 Turns (QC): 6 Walk 150 ft (QC): 6 PT Plan Treatment/Plan Treatment Plan: Continue Plan of Care Treatment Plan: Education, Functional Activity Arpan, Functional Strength, Gait, Safety, Therapeutic Exercise, Transfers Treatment Duration: May 23, 2022 Frequency: 6 times per week Estimated Hrs Per Day: .25 hour per day Patient and/or Family Agrees t: Yes Time/GCodes Time In: 1028 Time Out: 1038 Total Billed Treatment Time: 10 Total Billed Treatment 1 visit FA 10 min KEL STEELE PT May 15, 2022 10:58
[2022-05-15] MEDS ORDERED: ASPI-1238 PO (11:28)
[2022-05-15] MEDS ORDERED: MECL-149 PO (11:28)
--- NOTE | 2022-05-15 11:30 | Discharge Summary ---
Discharge Summary Hospital Course Was the Problem List Reviewed?: Yes Problems/Dx: (1) Meningitis (2) COVID (3) Vertigo, constant Status: Acute (4) Leukocytosis Hospital Course Date of Admission: May 12, 2022 at 22:58 Admission Diagnosis : Family Physician/Provider: Date of Discharge: 05/15/22 Discharge Diagnosis: [ ] Hospital Course: Pt had an uneventful 4 day hospital course after he was admitted for Covid related illness without hypoxia and suspicion for meningitis. Lumbar puncture was done by anesthesia with a longer needle due to habitus. That showed mild WBC in the spinal fluid. Diagnosed with Covid meningitis. All antibiotics were discontinued. He was deemed stable by PT and OT with use of a walker. Dizziness improved. He was restarted on all of his home medications at discharge. Labs and Pending Lab Test: Laboratory Tests 05/15/22 05:44: White Blood Count 7.8, Red Blood Count 4.67, Hemoglobin 14.5, Hematocrit 43, Mean Corpuscular Volume 93, Mean Corpuscular Hemoglobin 31, Mean Corpuscular Hemoglobin Concent 33, Red Cell Distribution Width 12.8, Platelet Count 274, Mean Platelet Volume 9.3, Immature Granulocyte % (Auto) 1, Neutrophils (%) (Auto) 68, Lymphocytes (%) (Auto) 20, Monocytes (%) (Auto) 7, Eosinophils (%) (Auto) 4, Basophils (%) (Auto) 1, Neutrophils # (Auto) 5.3, Lymphocytes # (Auto) 1.6, Monocytes # (Auto) 0.5, Eosinophils # (Auto) 0.3, Basophils # (Auto) 0.1, Immature Granulocyte # (Auto) 0.1, Sodium Level 138, Potassium Level 3.6, Chloride Level 103, Carbon Dioxide Level 24, Anion Gap 11, Blood Urea Nitrogen 6L, Creatinine 0.88, Estimat Glomerular Filtration Rate 104, BUN/Creatinine Ratio 7, Glucose Level 94, Calcium Level 8.7, Corrected Calcium 8.9, Total Bilirubin 0.4, Aspartate Amino Transf (AST/SGOT) 37H, Alanine Aminotransferase (ALT/SGPT) 45, Alkaline Phosphatase 119, Total Protein 6.7, Albumin 3.8 Microbiology 05/13/22 Gram Stain - Final, Resulted 05/13/22 CSF Culture - Preliminary, Resulted No growth 05/12/22 Blood Culture - Preliminary, Resulted No growth Home Meds Active Aspirin EC (Aspirin) 81 Mg Tablet.dr 81 Mg PO DAILY Meclizine HCl 25 Mg Tablet 25 Mg PO Q6HR Reported Lamotrigine 100 Mg Tablet 100 Mg PO 1500 Carbamazepine ER (Carbamazepine) 400 Mg Tab.er.12h 400 Mg PO 0700,1500 Metformin HCl ER (Metformin HCl) 500 Mg Tab.er.24 500 Mg PO DAILY Lamotrigine 100 Mg Tablet 200 Mg PO BID TAKES 2 (100MG) TABS Amlodipine Besylate 10 Mg Tablet 10 Mg PO HS Assessment/Pt Instructions pcp 1 week Discharge Planning: <30 minutes discharge planning Discharge Instructions Discharge Diet: No Restrictions Discharge Physical Examination Vital Signs Vital Signs Date Time Temp Pulse Resp B/P (MAP) Pulse Ox O2 Delivery O2 Flow Rate FiO2 05/15/22 08:56 36.9 94 20 158/99 (118) 95 Room Air General Appearance: No Apparent Distress, WD/WN, Chronically ill, Obese Allergies: Coded Allergies: No Known Drug Allergies (Unverified , 05/12/22) Discharge Summary Date of Admission May 12, 2022 at 22:58 Date of Discharge Discharge Date: May 15, 2022 Admission Diagnosis Assessment: Severe debilitating dizziness COVID + without hypoxia Lactic acidosis Suspicion for meningitis s/p LP after delay due to habitus requiring anesthesia expertise HTN Seizure d/o Plan: Triple abx for meningitis empirically s/p LP delay due to habitus Seizure meds Discharge Diagnosis Assessment: Severe debilitating dizziness COVID + without hypoxia Lactic acidosis Suspicion for meningitis s/p LP after delay due to habitus requiring anesthesia expertise and confirmed COVID meningitis HTN Seizure d/o Plan: DC triple abx for meningitis empirically s/p LP delay due to habitus Seizure meds (1) Meningitis (2) COVID (3) Vertigo, constant Status: Acute (4) Leukocytosis RIGO MURILLO DO May 15, 2022 11:30
--- NOTE | 2022-05-15 12:03 | Occupational Ther Daily Note ---
OT Current Status-Daily Note Subjective Pt up in recliner, agreeable to OT Tx. Pt reports plans to discharge today, but appears reluctant about his ability to take care of himself at discharge. OT notified pt's nurse about his concerns and his performance during tx. ADL-Treatment Therapy Code Descriptions/Definitions Functional [place] Measure: 0=Not Assessed/NA 4=Minimal Assistance 1=Total Assistance 5=Supervision or Setup 2=Maximal Assistance 6=Modified [place] 3=Moderate Assistance 7=Complete IndependenceSCALE: Activities may be completed with or without assistive devices. 9-Uygjaebevw-ugfgrbr completes the activity by him/herself with no assistance from a helper. 5-Set-up or Clean-up Assistance-helper sets up or cleans up; patient completes activity. [place] assists only prior to or following the activity. 4-Supervision or Touching Assistance-helper provides verbal cues and/or touching/steadying and/or contact guard assistance as patient completes activity. Assistance may be provided throughout the activity or intermittently. 3-Partial/Moderate Assistance-helper does LESS THAN HALF the effort. [place] lifts, holds or supports trunk or limbs, but provides less than half the effort. 2-Substantial/Maximal Assistance-helper does MORE THAN HALF the effort. [place] lifts or holds trunk or limbs and provides more than half the effort. 2-Orxactadw-jzxwtx does ALL the effort. Patient does none of the effort to complete the activity. Or, the assistance of 2 or more helpers is required for the patient to complete the activity. If activity was not attempted, code reason: 7-Patient Refused. 9-Not Applicable-not attempted and the patient did not perform the activity before the current illness, exacerbation or injury. 10-Not Attempted due to Environmental Limitations-(lack of equipment, weather restraints, etc.). 88-Not Attempted due to Medical Conditions or Safety Concerns. Lower Body Dressing (QC): 4 (CGA for balance.) Other Treatment Pt seated in recliner, agreeable to OT Tx. Pt reports concerns about being able to complete ADLs at discharge, OT encouraged pt to participate in ADL treatment to address his concerns. Pt donned underwear, SBA required in stand for pant hike. He then donned jeans, during stand pt had 1 LOB while completing pant hike, falling back into chair abruptly. OT attempted to provide education about keeping 1 hand on the walker while performing pant hike with other hand, but he reports he is unable to do so, using BUEs to complete pant hike with CGA. Pt requests to walk around room using FWW, SBA-CGA required. During 1 turn, pt picked walker up off of ground and had a slight LOB. OT educated pt on safety aspects of keeping walker on the ground and slowing down when turning, he verbalized understanding. Post tx, pt in recliner, call light in reach and all needs met. Education OT Patient Education: Correct positioning, Energy conservation, Modified ADL techniques, Progress toward Goal/Update tx plan, Purpose of tx/functional activities, Rehab process Teaching Recipient: Patient Teaching Methods: Discussion Response to Teaching: Verbalize Understanding OT Snf Goals Professor Of Special Education Goals Time Frame: May 15, 2022 Eating (QC): 6 Oral Hygiene (QC): 6 Toileting Hygiene (QC): 6 Shower/Bathe Self (QC): 6 Upper Body Dressing (QC): 6 Lower Body Dressing (QC): 6 On/Off Footwear (QC): 6 1=Demonstrate adherence to instructed precautions during ADL tasks. 2=Patient will verbalize/demonstrate understanding of assistive devices/modifications for ADL. 3=Patient will improve strength/tolerance for activity to enable patient to perform ADL's. OT Education/Plan Problem List/Assessment Assessment: Decreased Activ Tolerance, Impaired Funct Balance, Impaired I ADL's, Impaired Self-Care Skills Discharge Recommendations Plan/Recommendations: Continue POC Treatment Plan/Plan of Care Patient would benefit from OT for education, treatment and training to promote independence in ADL's, mobility, safety and/or upper extremity function for ADL's. Plan of Care: ADL Retraining, Functional Mobility, UE Funct Exercise/Act Treatment Duration: May 15, 2022 Frequency: 3 times per week (3-5 times per week.) Estimated Hrs Per Day: .25 hour per day Rehab Potential: Fair Time/GCodes Start Time: 11:38 Stop Time: 11:54 Total Time Billed (hr/min): 16 Billed Treatment Time 1, ADL VICTOR MANUEL CHARLES OT May 15, 2022 12:03
[2022-05-15 12:35] VITALS: BP 144/86
[2022-05-15 20:45] VITALS: BP 144/86
== END 2022-05-15 20:45 | disposition home or self-care (01) ==
LOC: EDUNIT# 18:12 → ER 18:13 → 4TH 22:58
PROVIDERS: ADMIT Internal Medicine; ATTEND Internal Medicine
DX: G03.9 Meningitis, unspecified (principal); U07.1 COVID-19; D72.829 Elevated white blood cell count, unspecified
CPT/HCPCS: 36415; 70450; 71045; 80053; 80202; 81000; 82945; 83605; 83986; 84145; 84157; 85007; 85025; 85027; 86141; 87040; 87070; 87205; 87636; 89051; 93005; 96361; 96366; 96372; 96374; 96375; 96376; G0378